=== PATIENT | female | born 1980 | race African-American/Black ===

== ENCOUNTER 2021-08-26 20:13 | Emergency (ER) | payer SELFPAY ==
[~2021-08-26] VITALS: Ht 167.6 cm; Wt 70.3 kg
[2021-08-27] MEDS ORDERED: METH500T22 PO (01:35)
[2021-08-27] MEDS ORDERED: GUAI600T23 PO (01:35)
[2021-08-27] MEDS ORDERED: IBUP800T27 PO (01:35)
[2021-08-27] MEDS ORDERED: PRED20TA2 PO (01:35)
[2021-08-27] MEDS ORDERED: ALBUAER3 IN (01:35)
[2021-08-27 06:49] VITALS: BP 116/57
== END 2021-08-27 06:54 | disposition home or self-care (01) ==
LOC: ER 20:13
DX: U07.1 COVID-19 (principal)
CPT/HCPCS: 36415; 87426

== ENCOUNTER 2021-11-29 20:14 | Inpatient (IN) | payer MEDICAID, OTHER ==
[~2021-11-29] VITALS: Ht 165.1 cm; Wt 82.7 kg
[~2021-11-29 20:14] MED LIST: ALBUAER3 IN; GUAI600T23 PO; IBUP800T27 PO; METH500T22 PO; PRED20TA2 PO
[2021-11-29] MEDS ORDERED: PANTOPRAZOLE 40 MG/10 ML VIAL INJ IV ONE (21:15)
[2021-11-29] MEDS ORDERED: PROCHLORPERAZINE EDISYLATE 5 MG/ML 2ML VIAL IV ONE (21:15)
[2021-11-29] MEDS ORDERED: SODIUM CHLORIDE 0.9% 1,000 ML IVB ONE (21:15)
[2021-11-29 22:35] LABS: Basophils # (auto) 0.1 10 ^3/uL (0-0.2); Calcium 8.3 mg/dL (8.5-10.1); Eosinophils # (auto) 0.1 10 ^3/uL (0-0.8); Lymphocytes # (auto) 1.7 10 ^3/uL (0.4-5.4); Neutrophils % (auto) 70.5 % (37.0-80.0); Potassium 3.6 mmol/L (3.5-5.1); White Blood Cell 7.6 10^3/uL (4.4-10.8)
[2021-11-29 22:37] LABS: Basophils % (auto) 1.2 % (0.0-2.0); Hematocrit 7.7 % (36.0-46.0); Lymphocytes % (auto) 22.7 % (10.0-50.0); Mean Corpuscular Hemoglobin 17.6 pg (28.0-32.0); Mean Corpuscular Hgb Conc. 30.2 g/dL (32.0-36.0); Mean Corpuscular Volume 58.2 fL (80.0-100.0); Monocytes # (auto) 0.3 10 ^3/uL (0-1.3); Monocytes % (auto) 4.6 % (0.0-12.0); Neutrophils # (auto) 5.3 10 ^3/uL (1.6-8.6); Nucleated Red Blood Cells % 0.1 %; Red Blood Cells 1.33 10^6/uL (4.0-5.20)
[2021-11-29 22:38] LABS: BUN/Creatinine Ratio 12.7; Bilirubin, Total 0.2 mg/dL (0.2-1.0)
[2021-11-29 22:45] LABS: Red Cell Distribution Width 29.7 % (11.8-14.3)
[2021-11-29 22:48] LABS: Hemoglobin 2.3 g/dL (12.2-16.2)
[2021-11-29 22:59] LABS: Urine Bacteria NONE SEEN /hpf (None Seen); Urine Blood 1+ /uL (Negative); Urine Specific Gravity 1.014 (1.001-1.035); Urine WBC 223 /hpf (0 - 5); Urine WBC Clumps PRESENT /hpf (None Seen)
[2021-11-29 23:06] LABS: Hematocrit 8.1 % (36.0-46.0); Mean Corpuscular Hemoglobin 17.5 pg (28.0-32.0); Mean Corpuscular Volume 58.2 fL (80.0-100.0); Red Blood Cells 1.39 10^6/uL (4.0-5.20); White Blood Cell 8.1 10^3/uL (4.4-10.8)
[2021-11-29 23:15] LABS: Basophils % (manual) 0 (0.0-2.0); Blast Cells 0; Metamyelocytes % 0; Myelocytes % 0; Promyelocytes % 0; Reactive Lymphocytes 0
[2021-11-29 23:16] LABS: Hemoglobin 2.4 g/dL (12.2-16.2)
[2021-11-29 23:28] LABS: Band Neutrophils % (manual) 2; Eosinophils % (manual) 1 (0-7); Lymphocytes % (manual) 30 (10.0-50.0); Monocytes % (manual) 3 (0-12)
[2021-11-29] MEDS ORDERED: cefTRIAXone 1GM/50ML D5W 50 ML IV ONE (23:30)
[2021-11-30] VITALS (23 sets, daily range): BP systolic 93–123; BP diastolic 46–70
[2021-11-30] MEDS ORDERED: MORPHINE SULFATE INJECTION 2 MG/ML SYRG IV PRN (02:45)
[2021-11-30] MEDS ORDERED: ONDANSETRON HCL 4 MG/2 ML VIAL IV PRN (02:45)
[2021-11-30 09:02] LABS: Hematocrit 17.3 % (36.0-46.0)
[2021-11-30 09:05] LABS: Hemoglobin 5.6 g/dL (12.2-16.2)
[2021-11-30 09:28] LABS: % Iron Saturation 8.9 % (15-50)
[2021-11-30] MEDS: D5W/SOD CHLO 0.9% 1,000 ML IV SCH ×2 (11:03→18:03)
[2021-11-30] MEDS: PANTOPRAZOLE 40 MG/10 ML VIAL INJ IV SCH (11:03)
[2021-11-30 12:56] LABS: INR 1.08 (0.9-1.15)
[2021-11-30] MEDS ORDERED: SODIUM FERR GLUC 62.5MG/5ML 125 MG in SODIUM CHL 0.9% 100 ML IV ONE (13:45)
[2021-11-30] MEDS: cefTRIAXone 1GM/50ML D5W 50 ML IV SCH (21:06)
[2021-12-01 01:45] VITALS: BP 116/69
[2021-12-01] MEDS: D5W/SOD CHLO 0.9% 1,000 ML IV SCH (05:40)
[2021-12-01 06:58] LABS: Basophils # (auto) 0.1 10 ^3/uL (0-0.2); Hemoglobin 7.4 g/dL (12.2-16.2); Mean Corpuscular Volume 77.4 fL (80.0-100.0); Monocytes # (auto) 0.4 10 ^3/uL (0-1.3); White Blood Cell 7.7 10^3/uL (4.4-10.8)
[2021-12-01 07:01] LABS: Basophils % (auto) 1.1 % (0.0-2.0); Eosinophils # (auto) 0.1 10 ^3/uL (0-0.8); Eosinophils % (auto) 1.8 % (0.0-7.0); Hematocrit 21.3 % (36.0-46.0); Lymphocytes # (auto) 1.2 10 ^3/uL (0.4-5.4); Lymphocytes % (auto) 15.9 % (10.0-50.0); Mean Corpuscular Hemoglobin 26.9 pg (28.0-32.0); Mean Corpuscular Hgb Conc. 34.8 g/dL (32.0-36.0); Monocytes % (auto) 4.9 % (0.0-12.0); Neutrophils # (auto) 5.9 10 ^3/uL (1.6-8.6); Neutrophils % (auto) 76.3 % (37.0-80.0); Nucleated Red Blood Cells % 1.6 %; Red Blood Cells 2.75 10^6/uL (4.0-5.20); Red Cell Distribution Width 35.3 % (11.8-14.3)
[2021-12-01 07:12] LABS: % Iron Saturation 13.9 % (15-50)
[2021-12-01 07:18] LABS: Albumin 2.6 g/dL (3.4-5.0); Potassium 3.8 mmol/L (3.5-5.1)
[2021-12-01 07:21] LABS: BUN/Creatinine Ratio 9.2; Bilirubin, Total 0.3 mg/dL (0.2-1.0); Total Protein 5.5 g/dL (6.4-8.2)
[2021-12-01 09:00] VITALS: BP 127/75
[2021-12-01] MEDS: PANTOPRAZOLE 40 MG/10 ML VIAL INJ IV SCH (09:54)
[2021-12-01 13:00] VITALS: BP 122/68
[2021-12-01 17:00] VITALS: BP 131/82
[2021-12-01] MEDS: cefTRIAXone 1GM/50ML D5W 50 ML IV SCH (21:51)
[2021-12-01 22:00] VITALS: BP 124/84
[2021-12-02 05:00] VITALS: BP 123/80
[2021-12-02 07:12] LABS: Basophils # (auto) 0.1 10 ^3/uL (0-0.2); Basophils % (auto) 1.2 % (0.0-2.0); Eosinophils # (auto) 0.3 10 ^3/uL (0-0.8); Eosinophils % (auto) 3.9 % (0.0-7.0); Hematocrit 20.4 % (36.0-46.0); Hemoglobin 7.1 g/dL (12.2-16.2); Lymphocytes # (auto) 1.1 10 ^3/uL (0.4-5.4); Lymphocytes % (auto) 15.3 % (10.0-50.0); Mean Corpuscular Hemoglobin 27.4 pg (28.0-32.0); Mean Corpuscular Hgb Conc. 34.8 g/dL (32.0-36.0); Monocytes # (auto) 0.5 10 ^3/uL (0-1.3); Monocytes % (auto) 7.3 % (0.0-12.0); Neutrophils # (auto) 5.1 10 ^3/uL (1.6-8.6); Neutrophils % (auto) 72.3 % (37.0-80.0); Nucleated Red Blood Cells % 0.3 %; Red Blood Cells 2.59 10^6/uL (4.0-5.20); White Blood Cell 7.1 10^3/uL (4.4-10.8)
[2021-12-02 07:17] LABS: Mean Corpuscular Volume 78.7 fL (80.0-100.0); Red Cell Distribution Width 36.4 % (11.8-14.3)
[2021-12-02 07:22] LABS: BUN/Creatinine Ratio 10.8; Calcium 8.2 mg/dL (8.5-10.1); Potassium 3.9 mmol/L (3.5-5.1)
[2021-12-02 09:00] VITALS: BP 123/74
[2021-12-02] MEDS: PANTOPRAZOLE 40 MG/10 ML VIAL INJ IV SCH (10:00)
[2021-12-02] MEDS ORDERED: SODIUM CHLORIDE LOCK 10 ML ONE (12:12)
[2021-12-02] MEDS ORDERED: LIDOCAINE VISCOUS 2% 15ML UD ONE (12:12)
[2021-12-02 12:30] VITALS: BP 129/76
[2021-12-02] MEDS ORDERED: predniSONE 20 MG TAB PO ONE (14:45)
[2021-12-02] MEDS: diphenhdrAMINE HCL 50 MG/1 ML VL ONE ×2 (15:38→15:40)
[2021-12-02] MEDS: MIDAZOLAM HCL 5 MG/ML-1ML VIAL ONE ×2 (15:38→15:41)
[2021-12-02] MEDS: fentaNYL CITRATE 100 MCG/2 ML VL ONE ×2 (15:38→15:41)
[2021-12-02 17:00] VITALS: BP 138/82
[2021-12-02] MEDS: cefTRIAXone 1GM/50ML D5W 50 ML IV SCH (21:58)
[2021-12-02 22:00] VITALS: BP 117/82
[2021-12-03 05:00] VITALS: BP 121/77
[2021-12-03 05:51] LABS: Eosinophils # (auto) 0 10 ^3/uL (0-0.8); Hematocrit 24.4 % (36.0-46.0); Monocytes # (auto) 0.2 10 ^3/uL (0-1.3); White Blood Cell 8.6 10^3/uL (4.4-10.8)
[2021-12-03 05:55] LABS: Basophils # (auto) 0 10 ^3/uL (0-0.2); Basophils % (auto) 0.4 % (0.0-2.0); Hemoglobin 8.2 g/dL (12.2-16.2); Lymphocytes # (auto) 0.7 10 ^3/uL (0.4-5.4); Lymphocytes % (auto) 8.4 % (10.0-50.0); Mean Corpuscular Hgb Conc. 33.5 g/dL (32.0-36.0); Mean Corpuscular Volume 77.8 fL (80.0-100.0); Monocytes % (auto) 2.2 % (0.0-12.0); Neutrophils # (auto) 7.6 10 ^3/uL (1.6-8.6); Nucleated Red Blood Cells % 0.4 %; Red Blood Cells 3.14 10^6/uL (4.0-5.20)
[2021-12-03 05:59] LABS: Red Cell Distribution Width 35.8 % (11.8-14.3)
[2021-12-03 06:10] LABS: Potassium 4.1 mmol/L (3.5-5.1)
[2021-12-03 06:15] LABS: BUN/Creatinine Ratio 8.3; Calcium 8.7 mg/dL (8.5-10.1)
[2021-12-03] MEDS: predniSONE 20 MG TAB PO SCH (08:42)
[2021-12-03] MEDS: PANTOPRAZOLE 40 MG/10 ML VIAL INJ IV SCH (08:43)
[2021-12-03 08:51] VITALS: BP 126/65
[2021-12-03 12:57] VITALS: BP 108/69
[2021-12-03 17:13] VITALS: BP 117/78
[2021-12-03] MEDS: cefTRIAXone 1GM/50ML D5W 50 ML IV SCH (21:23)
[2021-12-03 22:00] VITALS: BP 127/78
[2021-12-04 05:00] VITALS: BP 126/71
[2021-12-04 06:35] LABS: Basophils # (auto) 0.1 10 ^3/uL (0-0.2); Hematocrit 23.1 % (36.0-46.0); Hemoglobin 7.6 g/dL (12.2-16.2); Nucleated Red Blood Cells % 0.1 %
[2021-12-04 06:38] LABS: Basophils % (auto) 1.2 % (0.0-2.0); Eosinophils # (auto) 0.1 10 ^3/uL (0-0.8); Eosinophils % (auto) 0.5 % (0.0-7.0); Lymphocytes # (auto) 1.4 10 ^3/uL (0.4-5.4); Lymphocytes % (auto) 13.1 % (10.0-50.0); Mean Corpuscular Hemoglobin 25.1 pg (28.0-32.0); Mean Corpuscular Volume 76.1 fL (80.0-100.0); Monocytes # (auto) 0.7 10 ^3/uL (0-1.3); Monocytes % (auto) 6.9 % (0.0-12.0); Neutrophils # (auto) 8.3 10 ^3/uL (1.6-8.6); Neutrophils % (auto) 78.3 % (37.0-80.0); Red Blood Cells 3.04 10^6/uL (4.0-5.20); White Blood Cell 10.6 10^3/uL (4.4-10.8)
[2021-12-04 09:00] VITALS: BP 108/66
[2021-12-04] MEDS: PANTOPRAZOLE 40 MG/10 ML VIAL INJ IV SCH (10:00)
[2021-12-04] MEDS: predniSONE 20 MG TAB PO SCH (10:24)
[2021-12-04] MEDS ORDERED: FER325T PO (10:53)
[2021-12-04] MEDS ORDERED: PRED20TA2 PO (10:53)
[2021-12-04 12:30] VITALS: BP 108/66
[2021-12-04 13:00] VITALS: BP 140/77
== END 2021-12-04 14:30 | disposition home or self-care (01) | DRG 809 ==
LOC: ER 20:14 → OVERFLOW 11-30 02:33 → WEST WING 11-30 08:22
PROVIDERS: ADMIT Nurse Practitioner; ATTEND Internal Medicine Pulmonary Disease
PROC: 30233N1 Transfusion of Nonautologous Red Blood Cells into Peripheral Vein, Percutaneous Approach (ICD-10-PCS; 2021-11-30)
PROC: 30233R1 Transfusion of Nonautologous Platelets into Peripheral Vein, Percutaneous Approach (ICD-10-PCS; 2021-11-30)
PROC: 0DB68ZX Excision of Stomach, Via Natural or Artificial Opening Endoscopic, Diagnostic (ICD-10-PCS; 2021-12-02)
PROC: 0DB98ZX Excision of Duodenum, Via Natural or Artificial Opening Endoscopic, Diagnostic (ICD-10-PCS; principal; 2021-12-02 15:34)
DX: D61.818 Other pancytopenia (principal); N39.0 Urinary tract infection, site not specified; F17.200 Nicotine dependence, unspecified, uncomplicated; D50.9 Iron deficiency anemia, unspecified; K44.9 Diaphragmatic hernia without obstruction or gangrene; Z20.822 Contact with and (suspected) exposure to COVID-19
CPT/HCPCS: 36415; 76705; 80048; 80053; 81001; 82150; 82728; 83010; 83540; 83550; 83615; 83690; 84702; 85007; 85014; 85018; 85025; 85027; 85045; 85379; 85384; 85610; 86850; 86880; 86900; 86901; 86920; 87086; 93970; 96365; 96375; 99291; C9113; G0378; J0696; J2250; J7042